=== PATIENT | male | born 1945 | race Caucasian/White ===

== ENCOUNTER 2017-10-04 18:04 | Observation (INO) | payer MEDICARE, OTHER ==
[~2017-10-04] VITALS: Ht 193 cm; Wt 117.9 kg
[2017-10-04] MEDS ORDERED: PROPRANOLOL HY120 MG PO (18:11)
[2017-10-04 18:34] VITALS: BP 118/65
[2017-10-04 18:38] LABS: HEMATOCRIT 54.1 % (42.0-52.0); HEMOGLOBIN 17.4 g/dL (13.5-18.0); MEAN CELL VOLUME 93 fl (78-100); MEAN CORPUSCULAR HEMOGLOBIN 30 pg (27-31); MEAN CORPUSCULAR HGB CONC 32 g/dL (33-37); MEAN PLATELET VOLUME 9.7 fl (7.4-10.4); PLATELET COUNT 288 K/mm3 (130-400); RED BLOOD COUNT 5.81 M/mm3 (4.20-5.60); RED CELL DISTRIBUTION WIDTH 14.3 % (11.5-14.5)
[2017-10-04 18:51] LABS: ALBUMIN 3.7 g/dL (3.5-5.0); BUN/CREATININE RATIO 6.9 (6.0-26.0); CALCIUM 8.8 mg/dL (8.4-10.2); POTASSIUM 3.6 mmol/L (3.6-5.0); TOTAL BILIRUBIN 1.2 mg/dL (0.2-1.3); TOTAL PROTEIN 7.8 g/dL (6.3-8.2)
[2017-10-04 19:00] LABS: WHITE BLOOD COUNT 20.1 K/mm3 (4.8-10.8)
[2017-10-04 19:01] LABS: LYMPHOCYTE 6 % (20-51); MONOCYTE 5 % (3-10); NEUTROPHILS 89 % (42-75)
[2017-10-04 23:05] VITALS: BP 92/61
[2017-10-04 23:15] LABS: URINE APPEARANCE CLOUDY; URINE COLOR DARK YELLOW; URINE PROTEIN(semi-quant) 2+ mg/dL (NEGATIVE)
[2017-10-04 23:16] VITALS: BP 92/61
[2017-10-04 23:16] LABS: URINE BILIRUBIN NEGATIVE (NEGATIVE); URINE BLOOD 250 ery/uL (NEGATIVE); URINE GLUCOSE NEGATIVE (NEGATIVE); URINE KETONE NEGATIVE (NEGATIVE); URINE LEUKOCYTE ESTERASE TRACE (NEGATIVE); URINE NITRATE NEGATIVE (NEGATIVE); URINE UROBILINOGEN NORMAL (NORMAL)
[2017-10-05] VITALS (7 sets, daily range): BP systolic 105–137; BP diastolic 59–73
[2017-10-05 08:34] LABS: HEMATOCRIT 49.6 % (42.0-52.0); HEMOGLOBIN 16.1 g/dL (13.5-18.0); MEAN CELL VOLUME 93 fl (78-100); MEAN CORPUSCULAR HEMOGLOBIN 30 pg (27-31); MEAN CORPUSCULAR HGB CONC 33 g/dL (33-37); MEAN PLATELET VOLUME 9.8 fl (7.4-10.4); PLATELET COUNT 220 K/mm3 (130-400); RED BLOOD COUNT 5.36 M/mm3 (4.20-5.60); RED CELL DISTRIBUTION WIDTH 14.7 % (11.5-14.5); WHITE BLOOD COUNT 15.1 K/mm3 (4.8-10.8)
[2017-10-05 08:39] LABS: BUN/CREATININE RATIO 8.3 (6.0-26.0); POTASSIUM 3.5 mmol/L (3.6-5.0)
[2017-10-05 08:54] LABS: LYMPHOCYTE 17 % (20-51); MONOCYTE 7 % (3-10); NEUTROPHILS 76 % (42-75)
[2017-10-06 03:01] VITALS: BP 127/60
[2017-10-06 06:06] VITALS: BP 119/70
[2017-10-06 09:33] LABS: BASO # 0.1 (0.02-0.10); EOS # 0.1 (0.04-0.40); EOS % 1.3 % (0.0-4.0); HEMATOCRIT 48.7 % (42.0-52.0); HEMOGLOBIN 15.6 g/dL (13.5-18.0); LYMPH# 1.4 (1.50-4.00); MEAN CELL VOLUME 93 fl (78-100); MEAN CORPUSCULAR HEMOGLOBIN 30 pg (27-31); MEAN CORPUSCULAR HGB CONC 32 g/dL (33-37); MEAN PLATELET VOLUME 9.3 fl (7.4-10.4); MONO # 1.1 (0.20-0.80); NEU # 8.4 (1.40-6.50); PLATELET COUNT 228 K/mm3 (130-400); RED BLOOD COUNT 5.22 M/mm3 (4.20-5.60); RED CELL DISTRIBUTION WIDTH 14.8 % (11.5-14.5); WHITE BLOOD COUNT 11.2 K/mm3 (4.8-10.8)
[2017-10-06 09:58] LABS: BUN/CREATININE RATIO 9.3 (6.0-26.0); CALCIUM 7.9 mg/dL (8.4-10.2); POTASSIUM 3.4 mmol/L (3.6-5.0)
[2017-10-06 11:00] VITALS: BP 118/61
[2017-10-06 11:44] VITALS: BP 118/61
[2017-10-06 11:45] LABS: URINE APPEARANCE HAZY; URINE BILIRUBIN NEGATIVE (NEGATIVE); URINE BLOOD 250 ery/uL (NEGATIVE); URINE COLOR YELLOW; URINE GLUCOSE NEGATIVE (NEGATIVE); URINE KETONE NEGATIVE (NEGATIVE); URINE LEUKOCYTE ESTERASE NEGATIVE (NEGATIVE); URINE NITRATE NEGATIVE (NEGATIVE); URINE PROTEIN(semi-quant) TRACE mg/dL (NEGATIVE); URINE UROBILINOGEN NORMAL (NORMAL)
[2017-10-06 11:46] LABS: URINE MUCUS PRESENT (NOT PRESENT)
[2017-10-06] MEDS ORDERED: SEPTRA DS 8001 TAB PO (12:06)
[2017-10-06] MEDS ORDERED: IMODIUM 2MG CAPS2 MG PO (12:07)
== END 2017-10-06 14:18 | disposition home or self-care (01) ==
LOC: ED 18:04 → MED/SURG 22:19
PROVIDERS: ADMIT Family Medicine
DX: E86.9 Volume depletion, unspecified (principal); I95.1 Orthostatic hypotension; R19.7 Diarrhea, unspecified; N39.0 Urinary tract infection, site not specified; B96.89 Other specified bacterial agents as the cause of diseases classified elsewhere; N28.9 Disorder of kidney and ureter, unspecified; Z91.81 History of falling; R25.1 Tremor, unspecified; F17.220 Nicotine dependence, chewing tobacco, uncomplicated; K40.90 Unilateral inguinal hernia, without obstruction or gangrene, not specified as recurrent
CPT/HCPCS: A4354; G0378; J1956; J7030

== ENCOUNTER → 2017-10-11 | Outpatient (CLI) | payer MEDICARE, OTHER ==
[2017-10-06 11:44] VITALS: BP 118/61
[~2017-10-11] MED LIST: IMODIUM 2MG CAPS2 MG PO; PROPRANOLOL HY120 MG PO; SEPTRA DS 8001 TAB PO
[2017-10-11 15:55] LABS: BASO # 0.1 (0.02-0.10); EOS # 0.4 (0.04-0.40); EOS % 2.8 % (0.0-4.0); HEMATOCRIT 50.7 % (42.0-52.0); HEMOGLOBIN 16.6 g/dL (13.5-18.0); LYMPH# 2.2 (1.50-4.00); MEAN CELL VOLUME 92 fl (78-100); MEAN CORPUSCULAR HEMOGLOBIN 30 pg (27-31); MEAN CORPUSCULAR HGB CONC 33 g/dL (33-37); MONO # 1.4 (0.20-0.80); NEU # 8.6 (1.40-6.50); PLATELET COUNT 334 K/mm3 (130-400); RED BLOOD COUNT 5.54 M/mm3 (4.20-5.60); WHITE BLOOD COUNT 12.7 K/mm3 (4.8-10.8)
[2017-10-11 16:17] LABS: URINE APPEARANCE HAZY; URINE BILIRUBIN NEGATIVE (NEGATIVE); URINE BLOOD 250 ery/uL (NEGATIVE); URINE COLOR YELLOW; URINE GLUCOSE NEGATIVE (NEGATIVE); URINE KETONE NEGATIVE (NEGATIVE); URINE LEUKOCYTE ESTERASE TRACE (NEGATIVE); URINE NITRATE NEGATIVE (NEGATIVE); URINE PROTEIN(semi-quant) TRACE mg/dL (NEGATIVE); URINE UROBILINOGEN NORMAL (NORMAL)
[2017-10-11 18:10] LABS: BUN/CREATININE RATIO 9.6 (6.0-26.0); CALCIUM 8.8 mg/dL (8.4-10.2); POTASSIUM 3.8 mmol/L (3.6-5.0)
== END ==
LOC: LAB 15:22
PROVIDERS: Family Medicine
DX: D72.829 Elevated white blood cell count, unspecified (principal); N17.9 Acute kidney failure, unspecified; N39.0 Urinary tract infection, site not specified

== ENCOUNTER → 2019-10-13 | Outpatient (CLI) | payer MEDICARE, OTHER ==
[2019-10-13 10:26] LABS: ALBUMIN 3.5 g/dL (3.4-4.8); POTASSIUM 4.2 mmol/L (3.5-5.1)
[2019-10-13 10:27] LABS: CALCIUM 9.1 mg/dL (8.3-10.5)
[2019-10-13 10:28] LABS: TOTAL PROTEIN 7.4 g/dL (6.2-8.1)
[2019-10-13 10:30] LABS: BASO # 0.1 (0.02-0.10); EOS # 0.2 (0.04-0.40); EOS % 1.8 % (0.0-4.0); HEMATOCRIT 53.8 % (42.0-52.0); HEMOGLOBIN 16.7 g/dL (13.5-18.0); LYMPH# 1.8 (1.50-4.00); MEAN CELL VOLUME 94 fl (78-100); MEAN CORPUSCULAR HEMOGLOBIN 29 pg (27-31); MEAN CORPUSCULAR HGB CONC 31 g/dL (33-37); MEAN PLATELET VOLUME 9.7 fl (7.4-10.4); MONO # 1.1 (0.20-0.80); NEU # 10.4 (1.40-6.50); PLATELET COUNT 307 K/mm3 (130-400); RED BLOOD COUNT 5.74 M/mm3 (4.20-5.60); RED CELL DISTRIBUTION WIDTH 14.5 % (11.5-14.5); TOTAL BILIRUBIN 0.7 mg/dL (0.2-1.2); WHITE BLOOD COUNT 13.6 K/mm3 (4.8-10.8)
== END ==
LOC: LAB 10:02
PROVIDERS: Family Medicine
DX: Z00.00 Encounter for general adult medical examination without abnormal findings (principal); E78.5 Hyperlipidemia, unspecified

== ENCOUNTER → 2020-06-22 | Outpatient (CLI) | payer MEDICARE, OTHER ==
[2020-06-22 14:40] LABS: BASO # 0.1 (0.02-0.10); EOS # 0.2 (0.04-0.40); EOS % 1.7 % (0.0-4.0); HEMATOCRIT 52.6 % (42.0-52.0); HEMOGLOBIN 16.6 g/dL (13.5-18.0); LYMPH# 1.8 (1.50-4.00); MEAN CELL VOLUME 93 fl (78-100); MEAN CORPUSCULAR HEMOGLOBIN 29 pg (27-31); MEAN CORPUSCULAR HGB CONC 32 g/dL (33-37); MEAN PLATELET VOLUME 9.7 fl (7.4-10.4); PLATELET COUNT 322 K/mm3 (130-400); RED BLOOD COUNT 5.66 M/mm3 (4.20-5.60); RED CELL DISTRIBUTION WIDTH 14.4 % (11.5-14.5); WHITE BLOOD COUNT 13.6 K/mm3 (4.8-10.8)
[2020-06-22 14:53] LABS: ALBUMIN 3.6 g/dL (3.4-4.8); POTASSIUM 3.9 mmol/L (3.5-5.1)
[2020-06-22 14:54] LABS: CALCIUM 8.5 mg/dL (8.3-10.5)
[2020-06-22 14:56] LABS: TOTAL PROTEIN 7.8 g/dL (6.2-8.1)
[2020-06-22 14:57] LABS: TOTAL BILIRUBIN 1.1 mg/dL (0.2-1.2)
[2020-06-22 14:58] LABS: NEU # 10.5 (1.40-6.50)
== END ==
LOC: LAB 14:24
PROVIDERS: Family Medicine
DX: N18.1 Chronic kidney disease, stage 1 (principal); D72.829 Elevated white blood cell count, unspecified; E78.5 Hyperlipidemia, unspecified

== ENCOUNTER 2021-03-18 15:46 | Observation (INO) | payer MEDICARE, OTHER ==
[2021-03-18 16:31] VITALS: BP 135/74
[2021-03-18 17:31] LABS: BASO # 0.1 (0.02-0.10); EOS # 0.6 (0.04-0.40); EOS % 4.3 % (0.0-4.0); HEMATOCRIT 49.7 % (42.0-52.0); HEMOGLOBIN 15.7 g/dL (13.5-18.0); LYMPH# 2.3 (1.50-4.00); MEAN CELL VOLUME 94 fl (78-100); MEAN CORPUSCULAR HEMOGLOBIN 30 pg (27-31); MEAN CORPUSCULAR HGB CONC 32 g/dL (33-37); MEAN PLATELET VOLUME 9.1 fl (7.4-10.4); MONO # 0.8 (0.20-0.80); PLATELET COUNT 401 K/mm3 (130-400); RED BLOOD COUNT 5.28 M/mm3 (4.20-5.60); RED CELL DISTRIBUTION WIDTH 14.2 % (11.5-14.5); WHITE BLOOD COUNT 13.6 K/mm3 (4.8-10.8)
[2021-03-18 17:35] LABS: NEU # 9.7 (1.40-6.50)
[2021-03-18 17:45] LABS: ALBUMIN 3.3 g/dL (3.4-4.8); POTASSIUM 4.7 mmol/L (3.5-5.1)
[2021-03-18 17:47] LABS: TOTAL PROTEIN 6.7 g/dL (6.2-8.1)
[2021-03-18 17:49] LABS: TOTAL BILIRUBIN 0.9 mg/dL (0.2-1.2)
[2021-03-18] MEDS ORDERED: ASPIRIN E.C. 8181 MG PO (17:53)
[2021-03-18] MEDS ORDERED: AMLODIPINE BES2.5 MG PO (17:53)
[2021-03-18] MEDS ORDERED: MYSOLINE50 M1 PO (17:54)
[2021-03-18] MEDS ORDERED: CLOPIDOGREL75 M2 PO (17:54)
[2021-03-18] MEDS ORDERED: ATORVASTATIN CA40 MG PO (17:54)
[2021-03-18 18:52] VITALS: BP 121/70
--- NOTE | 2021-03-18 19:30 | NUR ---
PATIENT ADMITTED FROM THE ER VIA WHEELCHAIR AT THIS TIME, IVL IN PLACE AND PATENT TO LEFT WRIST, TELEMETRY SHOWS NORMAL SINUS RHYTHM, PATIENT ASSISTED IN CHANGING INTO HOSPITAL GOWN AND GRIPPY SOCKS, PATIENT ABLE TO TRANSFER SELF FROM WHEELCHAIR INTO BED, TUCKED IN, ORIENTED TO CALL LIGHT, BED FUNCTIONS, SAFETY MEASURES, AND PLAN OF CARE, PATIENT VERBALIZES UNDERSTANDING OF ALL INSTRUCTIONS, PATIENT IS ALERT AND ORIENTED X 3, MINIMAL WHEEZES AUSCULTATED IN BASES, DENIES ANY DIFFICULTY BREATHING, HEART RATE REGULAR, SKIN PINK, WARM, DRY AND INTACT, ADMITTED AFTER A WITNESSED SYNCOPAL EPISODE PRIOR TO ARRIVING AT HOSPITAL, WAS FOUND TO BE DEHYDRATED, DOES HAVE A HISTORY OF CVA WITH SOME MINIMAL RESIDUAL LEFT SIDED WEAKNESS, ALL 4 LIMBS ARE FUNCTIONAL BUT LEFT IS JUST A LITTLE WEAKER,
[2021-03-18 22:13] VITALS: BP 121/72
[2021-03-19 06:05] LABS: URINE APPEARANCE CLEAR; URINE BILIRUBIN NEGATIVE (NEGATIVE); URINE BLOOD NEGATIVE (NEGATIVE); URINE COLOR AMBER; URINE GLUCOSE NEGATIVE (NEGATIVE); URINE KETONE NEGATIVE (NEGATIVE); URINE LEUKOCYTE ESTERASE NEGATIVE (NEGATIVE); URINE NITRATE NEGATIVE (NEGATIVE); URINE PROTEIN(semi-quant) NEGATIVE (NEGATIVE); URINE UROBILINOGEN NORMAL (NORMAL); URINE WBC 0-1 /hpf (0-3)
[2021-03-19 06:09] VITALS: BP 125/72
[2021-03-19 07:38] LABS: HEMATOCRIT 44.3 % (42.0-52.0); HEMOGLOBIN 14.1 g/dL (13.5-18.0); MEAN CELL VOLUME 96 fl (78-100); MEAN CORPUSCULAR HEMOGLOBIN 31 pg (27-31); MEAN CORPUSCULAR HGB CONC 32 g/dL (33-37); MEAN PLATELET VOLUME 8.8 fl (7.4-10.4); PLATELET COUNT 314 K/mm3 (130-400); RED BLOOD COUNT 4.63 M/mm3 (4.20-5.60); RED CELL DISTRIBUTION WIDTH 14.4 % (11.5-14.5); WHITE BLOOD COUNT 13.1 K/mm3 (4.8-10.8)
[2021-03-19 08:19] LABS: LYMPHOCYTE 12 % (20-51); MONOCYTE 13 % (3-10); NEUTROPHILS 72 % (42-75)
[2021-03-19 09:23] VITALS: BP 119/75
--- NOTE | 2021-03-19 09:30 | NUR ---
Patient alert and oriented. Denies pain. Denies dizziness or shortness of breath. States that he is ready for discharge. INT to left wrist. Telemetry leads intact. Patient denies needs or questions at this time. Fall precautions in place.
[2021-03-19 10:00] VITALS: BP 119/75
[2021-03-19 13:57] VITALS: BP 129/73
--- NOTE | 2021-03-19 14:55 | NUR ---
Dr. Carvalho at bedside.
--- NOTE | 2021-03-19 15:50 | NUR ---
Patient alert and oriented. Denies pain. Denies dizziness or shortness of breath. Patient discharged to home. Discharge instructions provided. Patient verbalizes understanding and denies questions or needs. Out of facility via wheelchair to [facility] without incident.
== END 2021-03-19 15:50 | disposition home or self-care (01) ==
LOC: ED 15:46 → MED/SURG 19:13
PROVIDERS: ADMIT Family Medicine
DX: I95.1 Orthostatic hypotension (principal); E86.9 Volume depletion, unspecified; R25.1 Tremor, unspecified; I10 Essential (primary) hypertension; E78.5 Hyperlipidemia, unspecified; F17.220 Nicotine dependence, chewing tobacco, uncomplicated; Z86.73 Personal history of transient ischemic attack (TIA), and cerebral infarction without residual deficits; Z79.899 Other long term (current) drug therapy; Z79.82 Long term (current) use of aspirin; Z79.02 Long term (current) use of antithrombotics/antiplatelets
CPT/HCPCS: G0378; J1650; J7030

== ENCOUNTER 2021-03-21 15:21 | Emergency (ER) | payer MEDICARE, OTHER ==
[2021-03-21 19:40] VITALS: BP 116/75
[2021-03-21 20:19] LABS: LIPASE 18 U/L (8-78)
== END 2021-03-21 19:40 | disposition other institution (70) ==
LOC: ED 15:21
PROVIDERS: Nurse Practitioner Family
DX: I95.1 Orthostatic hypotension (principal); E86.9 Volume depletion, unspecified; D72.829 Elevated white blood cell count, unspecified; R10.11 Right upper quadrant pain; Z86.73 Personal history of transient ischemic attack (TIA), and cerebral infarction without residual deficits; Z91.81 History of falling; I12.9 Hypertensive chronic kidney disease with stage 1 through stage 4 chronic kidney disease, or unspecified chronic kidney disease; N18.1 Chronic kidney disease, stage 1; I48.91 Unspecified atrial fibrillation; E78.5 Hyperlipidemia, unspecified; J44.9 Chronic obstructive pulmonary disease, unspecified; F17.220 Nicotine dependence, chewing tobacco, uncomplicated; Z79.02 Long term (current) use of antithrombotics/antiplatelets; Z79.82 Long term (current) use of aspirin; Z79.899 Other long term (current) drug therapy
CPT/HCPCS: A4340; Q9965; Q9967

== ENCOUNTER 2021-03-21 19:32 | Inpatient (IN) | payer MEDICARE, OTHER ==
[2021-03-21 20:37] VITALS: BP 116/75
[2021-03-21 23:39] VITALS: BP 129/76
[2021-03-22 02:09] VITALS: BP 122/74
[2021-03-22 05:57] VITALS: BP 146/74
[2021-03-22 06:27] LABS: HEMATOCRIT 44.4 % (42.0-52.0); HEMOGLOBIN 13.9 g/dL (13.5-18.0); MEAN CELL VOLUME 95 fl (78-100); MEAN CORPUSCULAR HEMOGLOBIN 30 pg (27-31); MEAN CORPUSCULAR HGB CONC 31 g/dL (33-37); MEAN PLATELET VOLUME 8.9 fl (7.4-10.4); PLATELET COUNT 319 K/mm3 (130-400); RED BLOOD COUNT 4.67 M/mm3 (4.20-5.60); RED CELL DISTRIBUTION WIDTH 14.3 % (11.5-14.5)
[2021-03-22 06:57] LABS: WHITE BLOOD COUNT 21.8 K/mm3 (4.8-10.8)
[2021-03-22 06:58] LABS: LYMPHOCYTE 4 % (20-51); MONOCYTE 4 % (3-10); NEUTROPHILS 92 % (42-75)
[2021-03-22 07:07] LABS: ALBUMIN 2.9 g/dL (3.4-4.8); POTASSIUM 3.9 mmol/L (3.5-5.1)
[2021-03-22 07:08] LABS: CALCIUM 7.7 mg/dL (8.3-10.5)
[2021-03-22 07:09] LABS: TOTAL PROTEIN 6.1 g/dL (6.2-8.1)
[2021-03-22 07:11] LABS: TOTAL BILIRUBIN 1.2 mg/dL (0.2-1.2)
[2021-03-22 09:22] VITALS: BP 145/69
[2021-03-22 09:23] VITALS: BP 139/53
[2021-03-22 10:07] VITALS: BP 139/53
[2021-03-22 11:31] VITALS: BP 109/62
== END 2021-03-22 12:46 | disposition short-term general hospital (02) | DRG 872 ==
LOC: MED/SURG 19:32
PROVIDERS: ADMIT Nurse Practitioner Family
DX: A41.9 Sepsis, unspecified organism (principal); I48.91 Unspecified atrial fibrillation; I12.9 Hypertensive chronic kidney disease with stage 1 through stage 4 chronic kidney disease, or unspecified chronic kidney disease; N18.1 Chronic kidney disease, stage 1; J44.9 Chronic obstructive pulmonary disease, unspecified; I95.1 Orthostatic hypotension; D72.829 Elevated white blood cell count, unspecified; Z66 Do not resuscitate; R53.1 Weakness; E78.5 Hyperlipidemia, unspecified; F17.220 Nicotine dependence, chewing tobacco, uncomplicated; Z79.82 Long term (current) use of aspirin; Z86.73 Personal history of transient ischemic attack (TIA), and cerebral infarction without residual deficits
CPT/HCPCS: A4340; C9113; J1650; J2543; J3370; J7030; J7040; Q9965; Q9967

== ENCOUNTER → 2021-03-21 | Outpatient (CLI) | payer MEDICARE, OTHER ==
[2021-03-19 13:57] VITALS: BP 129/73
[~2021-03-21] MED LIST changes: +AMLODIPINE BES2.5 MG PO; +ASPIRIN E.C. 8181 MG PO; +ATORVASTATIN CA40 MG PO; +CLOPIDOGREL75 M2 PO; +MYSOLINE50 M1 PO
[2021-03-21 15:07] LABS: HEMATOCRIT 47.5 % (42.0-52.0); HEMOGLOBIN 15.2 g/dL (13.5-18.0); MEAN CELL VOLUME 93 fl (78-100); MEAN CORPUSCULAR HEMOGLOBIN 30 pg (27-31); MEAN CORPUSCULAR HGB CONC 32 g/dL (33-37); MEAN PLATELET VOLUME 8.8 fl (7.4-10.4); PLATELET COUNT 383 K/mm3 (130-400); RED BLOOD COUNT 5.09 M/mm3 (4.20-5.60); RED CELL DISTRIBUTION WIDTH 14.4 % (11.5-14.5); WHITE BLOOD COUNT 17.6 K/mm3 (4.8-10.8)
[2021-03-21 15:16] LABS: ALBUMIN 3.3 g/dL (3.4-4.8)
[2021-03-21 15:17] LABS: POTASSIUM 3.9 mmol/L (3.5-5.1); SODIUM 137 mmol/L (136-145)
[2021-03-21 15:18] LABS: CALCIUM 8.4 mg/dL (8.3-10.5)
[2021-03-21 15:19] LABS: GLUCOSE 133 mg/dL (75-110); TOTAL PROTEIN 7.1 g/dL (6.2-8.1)
[2021-03-21 15:20] LABS: CARBON DIOXIDE 23 mmol/L (23-31)
[2021-03-21 15:24] LABS: AST-SGOT 18 U/L (5-34)
[2021-03-21 15:25] LABS: ALT/SGPT 14 U/L (0-55); D-DIMER 2.08 mg/L FEU (0.15-0.50)
[2021-03-21 15:32] LABS: TROPONIN-I < 0.03 ng/mL (<0.030)
[2021-03-21 18:49] LABS: URINE APPEARANCE CLOUDY; URINE COLOR YELLOW; URINE GLUCOSE NEGATIVE (NEGATIVE); URINE KETONE NEGATIVE (NEGATIVE); URINE PROTEIN(semi-quant) 2+ mg/dL (NEGATIVE)
[2021-03-21 18:50] LABS: URINE BILIRUBIN 1+ (NEGATIVE); URINE BLOOD 50 ery/uL (NEGATIVE); URINE LEUKOCYTE ESTERASE TRACE (NEGATIVE); URINE MUCUS PRESENT (NOT PRESENT); URINE NITRATE NEGATIVE (NEGATIVE); URINE UROBILINOGEN 1 mg/dL (NORMAL)
[2021-03-21 19:10] LABS: LYMPHOCYTE 7 % (20-51); MONOCYTE 8 % (3-10); NEUTROPHILS 85 % (42-75); TARGET CELLS 1+; TEAR DROP CELLS 1+
== END ==
LOC: AMSURD 14:46
PROVIDERS: Family Medicine
DX: I95.1 Orthostatic hypotension (principal)

== ENCOUNTER → 2021-04-21 | Outpatient (CLI) | payer MEDICARE, OTHER ==
[2021-03-22 11:31] VITALS: BP 109/62
[2021-04-21 14:22] LABS: BASO # 0.12 (0.02-0.10); EOS % 3.8 % (0.0-4.0); HEMOGLOBIN 16.6 g/dL (13.5-18.0); LYMPH# 2.47 (1.50-4.00); MEAN CELL VOLUME 94 fl (78-100); MEAN CORPUSCULAR HEMOGLOBIN 30 pg (27-31); MEAN CORPUSCULAR HGB CONC 32 g/dL (33-37); MEAN PLATELET VOLUME 9.3 fl (7.4-10.4); NEU # 6.75 (1.40-6.50); PLATELET COUNT 250 K/mm3 (130-400); RED BLOOD COUNT 5.55 M/mm3 (4.20-5.60); RED CELL DISTRIBUTION WIDTH 13.3 % (11.5-14.5); WHITE BLOOD COUNT 10.7 K/mm3 (4.8-10.8)
[2021-04-21 14:32] LABS: ALBUMIN 3.8 g/dL (3.4-4.8); POTASSIUM 5.2 mmol/L (3.5-5.1)
[2021-04-21 14:33] LABS: CALCIUM 8.6 mg/dL (8.3-10.5)
[2021-04-21 14:34] LABS: TOTAL PROTEIN 8.1 g/dL (6.2-8.1)
[2021-04-21 14:36] LABS: TOTAL BILIRUBIN 0.8 mg/dL (0.2-1.2)
== END ==
LOC: LAB 13:56
PROVIDERS: Family Medicine
DX: N18.1 Chronic kidney disease, stage 1 (principal); D72.829 Elevated white blood cell count, unspecified

== ENCOUNTER → 2021-08-07 | Outpatient (CLI) | payer MEDICARE, OTHER ==
[2021-08-07 11:27] LABS: ALBUMIN 3.5 g/dL (3.4-4.8); POTASSIUM 4.4 mmol/L (3.5-5.1)
[2021-08-07 11:31] LABS: BASO # 0.05 (0.02-0.10); EOS # 0.23 (0.04-0.40); EOS % 4.9 % (0.0-4.0); HEMATOCRIT 39.5 % (42.0-52.0); HEMOGLOBIN 12.6 g/dL (13.5-18.0); LYMPH# 1.15 (1.50-4.00); MEAN CELL VOLUME 103 fl (78-100); MEAN CORPUSCULAR HEMOGLOBIN 33 pg (27-31); MEAN CORPUSCULAR HGB CONC 32 g/dL (33-37); MEAN PLATELET VOLUME 10.3 fl (7.4-10.4); MONO # 0.46 (0.20-0.80); NEU # 2.81 (1.40-6.50); PLATELET COUNT 242 K/mm3 (130-400); RED BLOOD COUNT 3.82 M/mm3 (4.20-5.60); RED CELL DISTRIBUTION WIDTH 12.8 % (11.5-14.5); TOTAL BILIRUBIN 1.1 mg/dL (0.2-1.2); WHITE BLOOD COUNT 4.7 K/mm3 (4.8-10.8)
== END ==
LOC: LAB 10:23
PROVIDERS: Family Medicine
DX: Z00.00 Encounter for general adult medical examination without abnormal findings (principal); E78.5 Hyperlipidemia, unspecified

== ENCOUNTER → 2022-04-16 | Outpatient (CLI) | payer MEDICARE, OTHER ==
[2022-04-16 12:26] LABS: BASO # 0.07 K/mm3 (0.02-0.10); EOS # 0.16 K/mm3 (0.04-0.40); EOS % 1.6 % (0.0-4.0); HEMATOCRIT 51.1 % (42.0-52.0); HEMOGLOBIN 16.3 g/dL (13.5-18.0); LYMPH# 1.64 K/mm3 (1.50-4.00); MEAN CELL VOLUME 95 fl (78-100); MEAN CORPUSCULAR HEMOGLOBIN 30 pg (27-31); MEAN CORPUSCULAR HGB CONC 32 g/dL (33-37); MEAN PLATELET VOLUME 9.7 fl (7.4-10.4); MONO # 1.08 K/mm3 (0.20-0.80); NEU # 7.19 K/mm3 (1.40-6.50); PLATELET COUNT 237 K/mm3 (130-400); RED CELL DISTRIBUTION WIDTH 13.5 % (11.5-14.5); WHITE BLOOD COUNT 10.2 K/mm3 (4.8-10.8)
[2022-04-16 12:30] LABS: ALBUMIN 3.7 g/dL (3.4-4.8); POTASSIUM 4.6 mmol/L (3.5-5.1)
[2022-04-16 12:31] LABS: CALCIUM 8.6 mg/dL (8.3-10.5)
[2022-04-16 12:32] LABS: TOTAL PROTEIN 6.8 g/dL (6.2-8.1)
[2022-04-16 12:34] LABS: TOTAL BILIRUBIN 1.1 mg/dL (0.2-1.2)
== END ==
LOC: LAB 11:45
PROVIDERS: Family Medicine
DX: Z00.00 Encounter for general adult medical examination without abnormal findings (principal); E78.5 Hyperlipidemia, unspecified; I63.9 Cerebral infarction, unspecified; I12.9 Hypertensive chronic kidney disease with stage 1 through stage 4 chronic kidney disease, or unspecified chronic kidney disease; N18.1 Chronic kidney disease, stage 1; G25.0 Essential tremor; R00.1 Bradycardia, unspecified; F40.11 Social phobia, generalized; D72.829 Elevated white blood cell count, unspecified; E66.9 Obesity, unspecified; Q21.1 Atrial septal defect; Z72.0 Tobacco use

== ENCOUNTER → 2023-08-28 | Outpatient (CLI) | payer MEDICARE, OTHER ==
[2023-08-28 12:31] LABS: BASO # 0.04 K/mm3 (0.02-0.10); EOS # 0.18 K/mm3 (0.04-0.40); EOS % 1.6 % (0.0-4.0); HEMATOCRIT 50.7 % (42.0-52.0); HEMOGLOBIN 16.3 g/dL (13.5-18.0); LYMPH# 1.82 K/mm3 (1.50-4.00); MEAN CELL VOLUME 96 fl (78-100); MEAN CORPUSCULAR HEMOGLOBIN 31 pg (27-31); MEAN CORPUSCULAR HGB CONC 32 g/dL (33-37); MEAN PLATELET VOLUME 9.7 fl (7.4-10.4); NEU # 7.94 K/mm3 (1.40-6.50); PLATELET COUNT 235 K/mm3 (130-400); RED BLOOD COUNT 5.28 M/mm3 (4.20-5.60); RED CELL DISTRIBUTION WIDTH 13.5 % (11.5-14.5); WHITE BLOOD COUNT 11.1 K/mm3 (4.8-10.8)
[2023-08-28 12:37] LABS: POTASSIUM 4.1 mmol/L (3.5-5.1)
[2023-08-28 12:38] LABS: ALBUMIN 3.6 g/dL (3.4-4.8)
[2023-08-28 12:39] LABS: CALCIUM 8.7 mg/dL (8.3-10.5)
[2023-08-28 12:40] LABS: TOTAL PROTEIN 6.9 g/dL (6.2-8.1)
[2023-08-28 12:42] LABS: TOTAL BILIRUBIN 0.8 mg/dL (0.2-1.2)
== END ==
LOC: LAB 12:18
PROVIDERS: Nurse Practitioner
DX: Z00.00 Encounter for general adult medical examination without abnormal findings (principal); Z23 Encounter for immunization; G25.0 Essential tremor; E55.9 Vitamin D deficiency, unspecified; R53.83 Other fatigue

== ENCOUNTER 2024-07-17 09:39 | Emergency (ER) | payer MEDICARE, OTHER ==
[~2024-07-17] VITALS: Ht 193 cm; Wt 131.4 kg
[2024-07-17 10:31] LABS: BASO # 0.02 K/mm3 (0.02-0.10); EOS # 0.14 K/mm3 (0.04-0.40); HEMOGLOBIN 15.1 g/dL (13.5-18.0); LYMPH# 1.34 K/mm3 (1.50-4.00); MEAN CELL VOLUME 98 fl (78-100); MEAN CORPUSCULAR HEMOGLOBIN 32 pg (27-31); MEAN CORPUSCULAR HGB CONC 32 g/dL (33-37); MEAN PLATELET VOLUME 9.3 fl (7.4-10.4); MONO # 0.88 K/mm3 (0.20-0.80); NEU # 11.03 K/mm3 (1.40-6.50); PLATELET COUNT 247 K/mm3 (130-400); RED CELL DISTRIBUTION WIDTH 14.6 % (11.5-14.5); WHITE BLOOD COUNT 13.5 K/mm3 (4.8-10.8)
[2024-07-17 10:40] LABS: ALBUMIN 3.1 g/dL (3.4-4.8)
[2024-07-17 10:43] LABS: TOTAL PROTEIN 6.2 g/dL (6.2-8.1)
[2024-07-17 10:45] LABS: TOTAL BILIRUBIN 0.7 mg/dL (0.2-1.2)
[2024-07-17 10:48] LABS: D-DIMER 0.72 mg/L FEU (0.15-0.50)
[2024-07-17] MEDS ORDERED: Iohexol 350 - 100 ML VIAL IV ONE (12:34)
[2024-07-17] MEDS ORDERED: Furosemide 40 MG/4 ML VIAL IV ONE (13:00)
[2024-07-18 12:30] VITALS: BP 138/79
== END 2024-07-17 15:18 | disposition home or self-care (01) ==
LOC: ED 09:39
PROVIDERS: Family Medicine
DX: M79.89 Other specified soft tissue disorders (principal); R79.89 Other specified abnormal findings of blood chemistry; E66.9 Obesity, unspecified; Z68.35 Body mass index [BMI] 35.0-35.9, adult
CPT/HCPCS: J1940; Q9967